=== PATIENT | female | born 1970 | race African-American/Black ===

== ENCOUNTER 2018-05-29 09:14 | Emergency (ER) | payer OTHER, BC ==
[~2018-05-29] VITALS: Ht 144.8 cm; Wt 61.2 kg
[2018-05-29] MEDS ORDERED: IBUPROFEN 400400 M2 PO (10:37)
[2018-05-29 10:52] VITALS: BP 123/80
[2018-05-30] MEDS ORDERED: FLEXERIL PO (10:46)
[2018-05-30] MEDS ORDERED: IBUPROFEN 400400 M2 PO (10:46)
== END 2018-05-29 10:52 | disposition home or self-care (01) ==
LOC: ER 09:14
DX: M22.2X2 Patellofemoral disorders, left knee (principal); Z90.49 Acquired absence of other specified parts of digestive tract

== ENCOUNTER 2018-05-30 09:15 | Emergency (ER) | payer OTHER, BC ==
[~2018-05-30] VITALS: Ht 144.8 cm; Wt 61.2 kg
[~2018-05-30 09:15] MED LIST: IBUPROFEN 400400 M2 PO
[2018-05-30] MEDS ORDERED: IBUPROFEN 400400 M2 PO (10:46)
[2018-05-30] MEDS ORDERED: FLEXERIL PO (10:46)
[2018-05-30 10:55] VITALS: BP 132/70
== END 2018-05-30 10:51 | disposition home or self-care (01) ==
LOC: ER 09:15
DX: M62.838 Other muscle spasm (principal); Z90.49 Acquired absence of other specified parts of digestive tract

== ENCOUNTER → 2018-06-09 | Outpatient (CLI) | payer OTHER, BC ==
[~2018-06-09] MED LIST changes: +FLEXERIL PO
== END ==
LOC: RAD 12:07
DX: M54.16 Radiculopathy, lumbar region (principal); Z97.5 Presence of (intrauterine) contraceptive device

== ENCOUNTER → 2018-07-28 | Outpatient (CLI) | payer OTHER, BC | LOC: MRI 12:30 | DX: M51.16 Intervertebral disc disorders with radiculopathy, lumbar region (principal); M47.26 Other spondylosis with radiculopathy, lumbar region ==

== ENCOUNTER → 2018-08-25 | Outpatient (CLI) | payer OTHER, BC ==
[~2018-08-25] VITALS: Ht 149.9 cm; Wt 65.1 kg
[~2018-08-25] MED LIST changes: +ADVIL200 M1 PO; +MEDROLDOSEPACK PO; +MOBIC15 MG PO
--- NOTE | ~2018-08-25 | HPC ---
[facility] [address] [place] [address] PAIN MANAGEMENT CONSULTATION Name: JOE SORIANO Room #: REG KYRIE Richards.#: [id number] Admission: 08/25/18 ������������������ Attend Phys: Chad Dowell MD Discharge: ������������������ Date of : 72 Report #: [id number] THIS REPORT FOR: //name// CC: Sade Dowell DATE OF SERVICE: 08/25/2018 PRIMARY CARE PHYSICIAN: JARRETT Aguilar CHIEF COMPLAINT: "Pain in the low back that goes down into both legs and in the front of my legs." HISTORY OF PRESENT ILLNESS: The patient is a 47-year-old female who has been seen by her primary. The patient is reporting pain and discomfort in the low back area. In the past, she has had some pain in the low back area. Over the last few weeks, she has noticed an increase in pain and discomfort. Pain is in the anterior portion of her thighs. Has had some occasional pain down in the area of her calf. Pain which is most problematic causes a feeling of "ball of fire," which is sharp and stabbing. Pain is worse when she is walking or sitting for a prolonged period of time. She is not sure of anything that makes it significantly better. Described it as continuous, steady, burning, shooting, aching, cramping, crushing, pulling, gnawing, pounding, sharp, stabbing, tender, and rates it as an 8/10 at this juncture. She denies any trauma to her back. She denies any past surgical history. She has undergone physical therapy over the last month. She has not seen a chiropractor. She denies any new bowel or bladder dysfunction as a result of this problem. She has had to try [id number] nonsteroidal anti-inflammatory medications with a slight bit of improvement. ALLERGIES: No known drug allergies. CURRENT MEDICATIONS: Ibuprofen 200 mg 1 p.o. b.i.d. PAST MEDICAL HISTORY: Anemia. PAST SURGICAL HISTORY: Appendectomy, 1991. SOCIAL HISTORY: She works as a [employer] professional. She is working at this juncture. She has had to take off 2-3 days of work because of this pain and discomfort. REVIEW OF SYSTEMS: The patient admits to headaches, has some blurred vision, numbness, nervousness, depression, and insomnia. LABORATORY DATA: MRI of the lumbar spine dated 07/28/2018 reveals: [address] [address] PAIN MANAGEMENT CONSULTATION Name: CHRISTIEJOE SHIELA Room #: REG CLI [facility]#: [id number] Admission: 08/25/18 ������������������ Attend Phys: Chad Dowell MD Discharge: ������������������ Date of : 72 Report #: [id number] 1. L1-L2. There is no significant disk bulge or protrusion identified. 2. L2-L3. There is no significant disk bulge or protrusion identified. 3. L3-L4. There is mild posterior disk bulging and foraminal disk bulging. There is mild bilateral facet arthrosis. There is mild thickening of the ligamentum flavum. There is mild right and moderate left medial foraminal stenosis with effacement of the exiting left L3 nerve root. 4. L4-L5. There is mild posterior disk bulging. There is mild bilateral facet arthrosis. There is mild foraminal disk bulging abutting the undersurface of the exiting L4 nerve root without significant displacement or obvious impingement. 5. L5-S1. There is no significant disk bulging or protrusion identified. There is no significant central spinal canal or neural foraminal stenosis. PAIN CLINIC ASSESSMENT/PQRS: 1. History of osteoarthritis. The patient is not being treated for osteoarthritis. 2. Rheumatoid arthritis. The patient has not been treated for rheumatoid arthritis. 3. Height 4 feet 11 inches, weight 143 pounds, BMI is 29.0. 4. VITAL SIGNS: Blood pressure 123/71, pulse 60, respiratory rate 14, room air saturation 100%. 5. Pain intensity 7-8/10. 6. Fall history: The patient has not fallen in the last 3 months. 7. Blood thinner. The patient is not on a blood thinning medication. 8. Hypertension. The patient has not been treated for hypertension. 9. Opioids greater than 6 weeks. The patient is not receiving opioid medication. 10. Risk assessment tool, low for opioid use, 03/23. 11. Functional assessment tool 69 of 70. 12. Recreational drug use. The patient denies. 13. Tobacco: The patient denies smoking. 14. Alcohol: The patient denies use of alcoholic beverages. PHYSICAL EXAMINATION: GENERAL: The patient is a well-developed, well-nourished black female, appears her stated age. She is alert and oriented x 3. Affect is appropriate. Speech is fluent. HEENT: Normocephalic, atraumatic. Extraocular eye muscles intact. Sclerae nonicteric. Mucous membranes are moist. NECK: Without adenopathy or JVD. HEART: Regular rate. ABDOMEN: Nontender. Bowel sounds present. EXTREMITIES: Upper extremity muscle strength is judged to be 5/5 for the major muscle groups in the upper extremity. Deep tendon reflexes +1 for the biceps. Lower extremity muscle strength is judged to be 5/5 for the major muscle groups in the lower extremity. The patient is without scoliosis, kyphosis or lordosis. [facility] [address] [facility] [place] [address] PAIN MANAGEMENT CONSULTATION Name: JOE SORIANO Room #: REG KYRIE aMgdy#: [id number] Admission: 08/25/18 ������������������ Attend Phys: Chad Dowell MD Discharge: ������������������ Date of : 72 Report #: [id number] The patient does complain of pain and discomfort, which is radiating down into the L3-L4 dermatomal distribution. Has some pain that radiates from the buttocks area around to the anterior portion of her thigh and down near the medial portion of her knee in the L3-L4 dermatomal distribution. She notes some sensory changes. Notes some weakness in this area. IMPRESSION: 1. Lumbar radiculopathy in L3-L4 dermatomal distribution with MRI correlation of posterior bulging disks and foraminal disk bulging with moderate left and mild right foraminal stenosis. 2. Anemia. RECOMMENDATIONS: We discussed treatment options with the patient. Risks and benefits of an epidural steroid injection were discussed. The patient's MRI was reviewed with her. It was pulled up on the computer screen. We did a thorough review of the anatomy of the low back area. We reviewed the most probable cause of her pain and discomfort. A model was used also to indicate and illustrate the areas, which were problematic. A video was shown indicating the problems associated with lumbar radiculopathy. The patient feels that she understands the situation. We have decided to try a conservative approach. The patient will be given a Medrol Dosepak to take in the interim. Hopefully, this will be efficacious and decrease her discomfort. She has also been given a nonsteroidal anti-inflammatory medication, Mobic. The Mobic will be taken once daily. The patient will not take the ibuprofen at this juncture. Hopefully, the ibuprofen as well as the Mobic medication will be beneficial. If the patient's pain continues, we would then consider an epidural steroid injection. She will undergo an epidural steroid injection at the L3-L4 area. Again, the findings are as listed above. The patient is showing signs of L3-L4 nerve root irritation with weakness involving her left as well as the right dermatomal distribution. We would like to thank you for letting us participate in her care. We hope she continues to improve. ��������������������������������������������� ���������������������������������������� By: ��������������������������������������������� [id number] Chad Dowell MD /PETRA
[2018-08-25 14:16] VITALS: BP 123/71
--- NOTE | 2018-08-25 14:31 | NUR ---
Pain Clinic Assessment: 1. History of Osteoarthritis: Not Applicable History of Rheumatoid Arthritis: Not Applicable 2. Height: 4 ft. 11 in. 149.9 cm. Weight: 143.6 lb. oz. 65.136 kg. Patient's BMI: 29.0 3. Vital Signs: BP: 123/71 Pulse: 60 Resp: 14 Temp: 02 Sat: 100 ECG Mon: 4. Pain Intensity: 7-8 5. Fall Risk: Dizziness: N Needs help standing or walking: N Fallen in the last 3 months: N Fall risk comments: 6. Patient on Blood Thinner: None 7. History of Hypertension: N 8. Opioid Therapy greater than 6 weeks: N Opiate Contract Signed: 9. Risk Assessment Tool Provided: LOW RISK / 10. Functional Assessment Tool: 69/70 11. Recreational Drug Use: Never Drug Type: Tobacco Use: Never Smoker Tobacco Type: Amount or Packs/day: How Many Years: Alcohol Use: No Frequency: Quant:
== END ==
LOC: PAIN 08-23 06:46
DX: M51.16 Intervertebral disc disorders with radiculopathy, lumbar region (principal); D64.9 Anemia, unspecified

== ENCOUNTER → 2018-10-13 | Outpatient (CLI) | payer OTHER, BC ==
[~2018-10-13] VITALS: Ht 149.9 cm; Wt 65.1 kg
--- NOTE | ~2018-10-13 | HPC ---
[facility] [address] [place] [address] PAIN MANAGEMENT CONSULTATION Name: JOE SORIANO Room #: REG KYRIE PerzaaDarrellAna.#: [id number] Admission: 10/13/18 ������������������ Attend Phys: Chad Dowell MD Discharge: ������������������ Date of : 72 Report #: [id number] THIS REPORT FOR: //name// CC: Sade Dowell DATE OF SERVICE: 10/13/2018 HISTORY: The patient is a 47-year-old female who has been seen in the pain clinic because of pain and discomfort in the mid back area with pain that has been radiating down the anterior portion of her thigh. She has returned today with the hopes of undergoing an epidural steroid injection. She continues to describe the pain as burning, shooting, cramping, aching, crushing, pulling, throbbing, pounding, sharp, stabbing and rates it as a 7-8/10. Pain continues to go down both buttocks and down into the front of her legs. She is a little nervous about having an epidural injection. She had an epidural for her childbirth a few months ago. She is not having any bowel or bladder dysfunction. ALLERGIES: No known drug allergies. CURRENT MEDICATIONS: Ibuprofen 200 mg 1 p.o. b.i.d. PAIN CLINIC ASSESSMENT/PQRS: 1. History of osteoarthritis. The patient is not being treated for osteoarthritis. 2. Rheumatoid arthritis. The patient is not being treated for rheumatoid arthritis. 3. Height 4 feet 11 inches, weight 143 pounds, BMI is 29. 4. VITAL SIGNS: Blood pressure 120/80, pulse 71, respiratory rate 16, room air saturation 99%. 5. Pain intensity 7-8/10. 6. Fall history: The patient has not fallen in the last 3 months. 7. Blood thinner. The patient is not on a blood thinning medication. 8. Hypertension. The patient is not being treated for hypertension. 9. Opioids greater than 6 weeks. 10. Risk assessment tool, low for opioid use. 11. Functional assessment tool 69 of 70. 12. Recreational drug use. The patient denies use of recreational drugs. 13. Tobacco: The patient denies use of tobacco. 14. Alcohol: The patient denies use of alcoholic beverages. PHYSICAL EXAMINATION: GENERAL: The patient is a well-developed, well-nourished black female, appears her stated age. She is alert and oriented x 3. Her affect is appropriate. Speech is fluent. [address] [address] PAIN MANAGEMENT CONSULTATION Name: JOE SORIANO Room #: REG CLI [facility]#: [id number] Admission: 10/13/18 ������������������ Attend Phys: Chad Dowell MD Discharge: ������������������ Date of : 72 Report #: [id number] HEENT: Normocephalic, atraumatic. Extraocular eye muscles intact. Sclerae nonicteric. Mucous membranes are moist. NECK: Without adenopathy or JVD. ABDOMEN: Nontender. Bowel sounds present. EXTREMITIES: Upper extremity muscle strength judged to be 5/5 for the major muscle groups in the upper extremity. Deep tendon reflexes +1 at the biceps. The patient without significant scoliosis, kyphosis or lordosis. Muscle strength in lower extremity judged to be 5/5 for the major muscle groups. The patient has pain and discomfort that radiates down into the anterior portion of her leg. Pain is most problematic today in the left dermatomal distribution of L3-L4. She would like to proceed with an epidural steroid injection. IMPRESSION: 1. Lumbar radiculopathy with L3-L4 dermatomal distribution with MRI correlation of posterior bulging disk and right disk bulging with moderate left and mild right foraminal stenosis. 2. Anemia. RECOMMENDATIONS: We discussed treatment options with the patient. At this juncture, we will proceed with an epidural steroid injection. Risks and benefits of the procedure were discussed. They include but are not limited to infection, worsening of pain, no improvement in pain, nerve damage, spinal headache, paresis and the patient elects to proceed. PROCEDURE NOTE: The patient was taken to the procedure area. She was then assisted in getting on the examination table. Her back was sterilely prepped with Betadine solution. This was allowed to dry. At the L3-L4 area, this area had been sterilely prepped with Betadine and infiltrated with 0.25% bupivacaine. A 17-gauge Tuohy with loss of resistance technique using a midline approach in a right paramedian approach direction was undertaken. Aspiration was negative. Total of 80 mg Depo-Medrol, 40 mg triamcinolone and 2 mL of 0.25% bupivacaine was injected. The patient tolerated the procedure well. There were no complications. Rates her pain as 5/10 at the time of discharge. Total of 13 seconds fluoro time was used. We would like to thank you for letting us participate in her care. We hope she continues to improve. ��������������������������������������������� ���������������������������������������� By: ��������������������������������������������� [id number] Chad Dowell MD /angel
[2018-10-13 10:23] VITALS: BP 120/80
--- NOTE | 2018-10-13 10:25 | NUR ---
Pain Clinic Assessment: 1. History of Osteoarthritis: Not Applicable History of Rheumatoid Arthritis: Not Applicable 2. Height: 4 ft. 11 in. 149.9 cm. Weight: 143.6 lb. oz. 65.136 kg. Patient's BMI: 29.0 3. Vital Signs: BP: 120/80 Pulse: 71 Resp: 16 Temp: 02 Sat: 99 ECG Mon: 4. Pain Intensity: 7-8 5. Fall Risk: Dizziness: N Needs help standing or walking: N Fallen in the last 3 months: N Fall risk comments: 6. Patient on Blood Thinner: None 7. History of Hypertension: N 8. Opioid Therapy greater than 6 weeks: N Opiate Contract Signed: 9. Risk Assessment Tool Provided: LOW RISK / 10. Functional Assessment Tool: 69/70 11. Recreational Drug Use: Never Drug Type: Tobacco Use: Never Smoker Tobacco Type: Amount or Packs/day: How Many Years: Alcohol Use: No Frequency: Quant:
== END | disposition home or self-care (01) ==
LOC: PAIN 06:44
DX: M51.16 Intervertebral disc disorders with radiculopathy, lumbar region (principal); M99.73 Connective tissue and disc stenosis of intervertebral foramina of lumbar region; D64.9 Anemia, unspecified; M19.90 Unspecified osteoarthritis, unspecified site; M06.9 Rheumatoid arthritis, unspecified; I10 Essential (primary) hypertension; Z79.899 Other long term (current) drug therapy